=== PATIENT | female | born 1975 | race Caucasian/White ===

== ENCOUNTER 2024-12-26 08:46 | Outpatient (CLI) | payer OTHER, SELFPAY ==
--- NOTE | ~2024-12-26 | MR_ITS ---
EXAMINATION: MR knee LT wo con DATE: 12/26/2024 09:31 INDICATION: Left knee pain TECHNIQUE: Magnetic resonance imaging (MRI) of the left knee was performed without intravenous contrast. Sequences included coronal PD-weighted FSE, coronal PD-weighted FS FSE, sagittal T2-weighted FSE, sagittal PD-weighted FS FSE and axial PD weighted fat saturated FSE. COMPARISON: None. FINDINGS: Medial compartment: There is mild medial extrusion of the medial meniscal body. There is mild intrasubstance increased signal at the junction of the body and posterior horn of the medial meniscus which does not obviously contact the articular surface to suggest meniscal tear but which would be consistent with mucoid degeneration. Deep chondral ulceration with mild subarticular edema-like signal change along the anterior weightbearing medial femoral condyle and anterior third of the medial tibial plateau. In addition there is mild cortical irregularity with tiny central subchondral osteophytes at the junction of the anterior to central weightbearing medial femoral condyle. Small marginal osteophytes are present. Lateral compartment: Lateral meniscus is normal. Articular cartilage is normal. Small marginal osteophytes are present. Patellofemoral compartment: Chondral fissure involving greater than 50% the cartilage thickness but without degenerative subchondral changes at the central aspect of the medial patellar facet. Mild partial-thickness chondral ulceration at the central aspect of the medial trochlea. Ligaments and tendons: Anterior and posterior cruciate ligaments are normal. The medial collateral ligament and fibular collateral ligament complex are normal. The extensor mechanism is normal. The visualized medial and lateral hamstring tendons as well as the iliotibial band are normal. Fluid: Moderate to large left knee joint effusion. There are a few small loose osteochondral bodies in the posterior recess of the medial and lateral compartments as well as in the recess along the anterior rim of the medial tibial plateau. Osseous/other: Bone alignment is normal. No fracture or pathologic marrow replacing process. IMPRESSION: 1. 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 Minimal osteoarthritis the lateral compartme nt with normal-appearing cartilage but small marginal osteophytes. 2. Medial extrusion of the medial meniscus with mucous degeneration without discrete tear at the junction of the body and posterior horn. 3. Moderate to large left knee joint effusion. Scattered loose osteochondral bodies. Reviewed, dictated and finalized at location A. IMPRESSION: 1. Tricompartmental osteoarthritis, severe in the medial compartment with high- grade chondral malacia in both sides the joint space and mild in the patellofem oral compartment with moderate grade chondral malacia the medial trochlea and m edial tibial plateau. Minimal osteoarthritis the lateral compartment with sun l-appearing cartilage but small marginal osteophytes. 2. Medial extrusion of the medial meniscus with mucous degeneration without dis crete tear at the junction of the body and posterior horn. 3. Moderate to large left knee joint effusion. Scattered loose osteochondral andrew dies.
--- OUTSIDE RECORDS SUMMARY | 2024-12-26 09:30 | XMS_ITS | Encounter Summary ---
Author Organization [facility] Address 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
--- OUTSIDE RECORDS SUMMARY | 2024-12-26 09:30 | XMS_ITS | Encounter Summary ---
Author Organization [facility] Address 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 [address] [place] [address] PCP - General Internal Medicine 04/14/17 documented as of this encounter
--- OUTSIDE RECORDS SUMMARY | 2024-12-26 09:30 | XMS_ITS | Encounter Summary ---
Author Organization [facility] Address 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
--- OUTSIDE RECORDS SUMMARY | 2024-12-26 09:30 | XMS_ITS | Encounter Summary ---
Author Organization [facility] Address [address] [place] [address] Care Team Providers Care Absorption Operator Name Role Phone Elizabeth Fair MD Primary Care Pr ovider Encounter Details Date Type Department Care Team (Late st Contact Info) Description 02/25/2004 Outpatient Historical [facility] Maternal and Ground Floor [address] [place] [address] [place] [phone] Edson Anton MD [address] [place] [address] [address] Social History Tobacco Use Types Packs/Day Years Used Date Smoking Tobacco: Never Assessed Comments Unknown Sex and Gender Information Value Date Recorded Sex Assigned at Not on file 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
--- OUTSIDE RECORDS SUMMARY | 2024-12-26 09:30 | XMS_ITS | Encounter Summary ---
Author Organization [facility] Address 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
--- OUTSIDE RECORDS SUMMARY | 2024-12-26 09:30 | XMS_ITS | Encounter Summary ---
Author Organization [facility] Address 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 Gender Identity Not on file Sexual Orientation Not on file documented as of this encounter Plan of Treatment Not on file documented as of this encounter Procedures Procedure Name Priority Date/Time Associated Diagnosis Comments US BREAST Routine 08/21/2007 9:44 AM CDT MAMMO DIAGNOSTIC BILATERAL W OR WO CAD Routine 08/21/2007 9:44 AM CDT documented in this encounter Results * US BREAST (08/21/2007 9:44 AM CDT) Anatomical Region Laterality Modality Other 08/21/2007 9:44 AM CDT Narrative 08/22/2007 7:11 AM CDT [address] [address] Admit Date: 08/21/2007 FANNY PRINCE Sex: F Admit Prov: ELIER JAUREGUI Date: 1975 Primary Care Prov: HUNG BROWN CMRN: [id number] Room: NIKHIL SSN: [id number] IMAGING SERVICES Ordering Prov: ELIER JAUREGUI Accession Number: [id number] Interpretation Bilateral full field digital diagnostic mammograms with computer aided diagnosis and right breast ultrasound. 08/21/2007 History: Patient has right breast tenderness and lumpiness. Technique: Bilateral full field digital diagnostic mammograms are performed and CAD was utilized. No prior studies are available for comparison as this is the patient's baseline study. Breast composition: Heterogeneously dense, which lowers the sensitivity of mammography. Findings: No dominant masses, areas of asymmetry or suspicious clustered microcalcifications are identified within either breast. The CAD system detects no other significant abnormalities. Right breast ultrasound was performed. In the periareolar region, a 6 mm cyst is identified. No solid masses are seen. Overall assessment: BIRADS category 2 - Benign findings Recommendation: Clinical follow up is recommended for the patient's breast lumpiness. A simple cyst is identified in the periareolar region. No solid masses are identified on ultrasound. Patient should return for annual mammography at age 41. Dictated by: SIMON HERNANDES Electronically signed by: SIMON HERNANDES 08/22/2007 07:10 Transcribed: 08/21/2007 12:33 AMK Procedure Note Simon Hernandes - 08/22/[address] [address] Admit Date: 08/21/2007 FANNY PRINCE Sex: F Admit Prov: ELIER JAUREGUI Date: 1975 Primary Care Prov: HUNG BROWN CMRN: [id number] Room: NIKHIL SSN: [id number] IMAGING SERVICES Ordering Prov: ELIER JAUREGUI Interpretation Bilateral full field digital diagnostic mammograms with computeraided diagnosis and right breast ultrasound. 08/21/2007 History: Patient has right breast tenderness and lumpiness. Technique: Bilateral full field digital diagnostic mammograms areperformed and CAD was utilized. No prior studies are available for comparisonas this is the patient's baseline study. Breast composition: Heterogeneously dense, which lowers thesensitivity of mammography. Findings: No dominant masses, areas of asymmetry or suspiciousclustered microcalcifications are identified within either breast. The CADsystem detects no other significant abnormalities. Right breast ultrasound was performed. In the periareolar region, a 6mm cyst is identified. No solid masses are seen. Overall assessment: BIRADS category 2 - Benign findings Recommendation: Clinical follow up is recommended for the patient'sbreast lumpiness. A simple cyst is identified in the periareolar region. Nosolid masses are identified on ultrasound. Patient should return forannual mammography at age 41. Dictated by: SIMON HERNANDES Electronically signed by: SIMON HERNANDES 08/22/2007 07:10 Transcribed: 08/21/2007 12:33 AMK us Elier Garcia (Excluded Provider) Jay NUNN SERAFIN TATE Final Result * MAMMO DIGITAL DIAG BILAT (08/21/2007 9:44 AM CDT) Anatomical Region Laterality Modality Breast Bilateral Other 08/21/2007 9:4 4 AM CDT Narrative 08/22/2007 7:11 AM CDT [address] [address] Admit Date: 08/21/2007 FANNY PRINCE Sex: F Admit Prov: ELIER JAUREGUI Date: 1975 Primary Care Prov: HUNG BROWN CMRN: [id number] Room: NIKHIL SSN: [id number] IMAGING SERVICES Ordering Prov: ELIER JAUREGUI Accession Number: [id number] Interpretation Bilateral full field digital diagnostic mammograms with computer aided diagnosis and right breast ultrasound. 08/21/2007 History: Patient has right breast tenderness and lumpiness. Technique: Bilateral full field digital diagnostic mammograms are performed and CAD was utilized. No prior studies are available for comparison as this is the patient's baseline study. Breast composition: Heterogeneously dense, which lowers the sensitivity of mammography. Findings: No dominant masses, areas of asymmetry or suspicious clustered microcalcifications are identified within either breast. The CAD system detects no other significant abnormalities. Right breast ultrasound was performed. In the periareolar region, a 6 mm cyst is identified. No solid masses are seen. Overall assessment: BIRADS category 2 - Benign findings Recommendation: Clinical follow up is recommended for the patient's breast lumpiness. A simple cyst is identified in the periareolar region. No solid masses are identified on ultrasound. Patient should return for annual mammography at age 41._ Assessment BIRADS: 2-Benign finding Recommendation: Normal interval follow-up Dictated by: SIMON HERNANDES Electronically signed by: SIMON HERNANDES 08/22/2007 07:10 Transcribed: 08/21/2007 12:33 AMK Procedure Note Simon Hernandes - 08/22/[address] [address] Admit Date: 08/21/2007 FANNY PRINCE Sex: F Admit Prov: DONNACLAUDIA ELIER Garcia Date: 1975 Primary Care Prov: STEPHANIE HUNG Daniel CMRN: [id number] Room: NIKHIL SSN: [id number] IMAGING SERVICES Ordering Prov: DONNACLAUDIA ELIER Jose Interpretation Bilateral full field digital diagnostic mammograms with computeraided diagnosis and right breast ultrasound. 08/21/2007 History: Patient has right breast tenderness and lumpiness. Technique: Bilateral full field digital diagnostic mammograms areperformed and CAD was utilized. No prior studies are available for comparisonas this is the patient's baseline study. Breast composition: Heterogeneously dense, which lowers thesensitivity of mammography. Findings: No dominant masses, areas of asymmetry or suspiciousclustered microcalcifications are identified within either breast. The CADsystem detects no other significant abnormalities. Right breast ultrasound was performed. In the periareolar region, a 6mm cyst is identified. No solid masses are seen. Overall assessment: BIRADS category 2 - Benign findings Recommendation: Clinical follow up is recommended for the patient'sbreast lumpiness. A simple cyst is identified in the periareolar region. Nosolid masses are identified on ultrasound. Patient should return forannual mammography at age 41._ Assessment BIRADS: 2-Benign finding Recommendation: Normal interval follow-up Dictated by: SIMON HERNANDES Electronically signed by: SIMON HERNANDES 08/22/2007 07:10 Transcribed: 08/21/2007 12:33 AMK us Elier Garcia (Excluded Provider) Jay NUNN MAMMO O RDERABLES Final Result documented in this encounter Visit Diagnoses Diagnosis Mastodynia documented in this encounter Care Teams Date Pitter Relationship Specialty [place] [address] [facility] [address] [place] [address] PCP - General Internal Medicine 04/14/17 documented as of this encounter
--- OUTSIDE RECORDS SUMMARY | 2024-12-26 09:31 | XMS_ITS | Clinical Summary ---
Author Organization [facility] Address [address] [place] [address] Phone Care Team Providers Care Calender Feeder Name Role Phone Elizabeth Fair MD Primary Care Pr ovider Allergies No known active allergies Medications No known medications Active Problems Problem Noted Date Diagnosed Date History of stroke without residual deficits 03/31 Overweight (BMI 25.0-29.9) 04/14/2017 Gastroesophageal reflux disease without esophagi tis 04/14/2017 H/O meningioma of the brain 01/11/2013 PROM, di-di twins, breech, c /s @1600, h/o cardiomyopathy, EF 60% 11/13/2012 di/di twins, dec CL 1.1-->0. 8-->1.3, crinone, rpt CL tuesday, s/p 72 hrs indocin (09/02) s/p BMZ 09/01, h/o myocarditis/cardiomyopathy - nl echo, mfm, dopple 08/30/2012 Resolved Problems Problem Noted Date Diagnosed Date Resolved Date Calculus of gallbladder with acute cholecystitis without obstruction 04/20/20172017 Stroke 07/06/2010 04/14/2017 Encounters Date Type Department Care Team Description 12/18/2024 External Device Data STL ABSTRACTION Provider, Abstract 11/13/2024 External Device Data [facility] ABSTRACTION Provider, Abstract 10/15/2024 9:15 AM CDT - 10/15/2024 11:59 PM CDT Hospital Encounter [facility] [address] [facility] [address] [place] [address] Yareli Marina MD Discharge Disposition: Home or Self Care 10/02/2024 External Device Data STL ABSTRACTION Provider, Abstract 09/26/2024 Transcribe Orders [facility] Non Integrated Provider [address] [place] [address] Yareli Marina MD Visit for screening mammogram (Primary Dx) from Last 3 Months Immunizations Immunization Administration Dates Next Due (ADACEL/BOOSTRIX)(10 YR UP) TDAP VACCINE, 0.5ML, IM 11/17/2012 Family History Medical History Relation Name Comments Heart Disease Father Hypertension Father Breast Cancer Maternal Aunt Other Mother killed in MVA Breast Cancer Paternal Aunt 60's Relation Name Status Comments Brother Alive Father Maternal Aunt Maternal Grandfather Maternal Grandmother Alive Mother Paternal Aunt Paternal Grandfather Paternal Grandmother Alive Sister 1 Alive Sister 2 Alive Sister 3 Alive Social History Tobacco Use Types Packs/Day Years Used Date Smoking Tobacco: Former Cigarettes 0.1 7 0 05/18/1995 - 05/17/2002 Smokeless Tobacco: Never Tobacco Cessation:Counseling Given: Yes Alcohol Use Standard Drinks/Week Comments Yes 0 (1 standard drink = 0.6 oz pur e alcohol) rare Comments No Sex and Gender Information Value Date Recorded Sex Assigned at Not on file 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 Gender Identity Not on file Sexual Orientation Not on file 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 Not on file Not on file Last Filed Vital Signs Vital Sign Reading Time Taken Comments Blood Pressure 143/83 05/02/2017 11:59 AM ACCOUNT MAINTENANCE REPRESENTATIVE Pulse 86 05/02/2017 11:59 AM ACCOUNT MAINTENANCE REPRESENTATIVE Temperature 36.8 C (98.2 F) 04/23/2017 3:43 PM ACCOUNT MAINTENANCE REPRESENTATIVE Respiratory Rate 16 04/23/2017 3:43 PM ACCOUNT MAINTENANCE REPRESENTATIVE Oxygen Saturation 99% 04/23/2017 3:43 PM ACCOUNT MAINTENANCE REPRESENTATIVE Inhaled Oxygen Concentration - - Weight 73 kg (161 lb) 05/02/2017 11:59 AM ACCOUNT MAINTENANCE REPRESENTATIVE Height 165.1 cm (5' 5) 05/02/2017 11:59 AM ACCOUNT MAINTENANCE REPRESENTATIVE Body Mass Index 26.79 05/02/2017 11:59 AM ACCOUNT MAINTENANCE REPRESENTATIVE Plan of Treatment Health Maintenance Due Date Last Done Comments HEPATITIS B VACCINES (1 of 3 - 19+ 3-dose series) 11/06/1995 HPV/Cotest (21-29) 1997 HPV/Cotest (30-65) 2006 CERVICAL CANCER SCREENING 08/31/2019 PAP SMEAR 08/31/2019 08/30/2016 COLORECTAL SCREENING 2021 Colorectal Cancer Screening 2021 FIT-DNA Q 3 years 2021 FIT/FOBT Q 1 year 2021 Flex Sig/CT Colonography Q 5 years 2021 DTAP/TDAP/TD VACCINES (2 - T d or Tdap) 11/17/2022 11/17/2012 Preventative Visit- Commercial 02/29/2024 04/14/2017 INFLUENZA VACCINE (#1) 2024 BREAST CANCER SCREENING 10/15/2025 10/16/19 25, 07/23/2023, 02/23/2021, Additional history exists Medical Devices Implanted Type Area [employer] Solutions Architect Device Identifier Shelf Expiration Date Model / Serial / Lot Barrier Seprafilm 5x6in 4301-02 - [id number] Implanted:Qty : 1 on 11/13/2012 by (Excluded Provider) [place] Thompson MD at [facility] Adhesion Barrier N/A: Abdomen GENZYME- BIOSURG 07/13/2014 4301-02 / [id number] Procedures Procedure Name Priority Date/Time Associated Diagnosis Comments MAMMO 3D SAMINA SCREEN BILAT W OR WO CAD Routine 10/15/2024 9:53 AM CDT Visit for screening mammogram from Last 3 Months Results * MAMMO 3D SAMINA SCREEN BILAT W OR WO CAD (10/15/2024 9:53 AM CDT) Anatomical Region Laterality Modality Breast Bilateral Mammography 10/15/2024 9:53 AM CDT Impressions 10/15/2024 10:01 AM CDT IMPRESSION: 1. No concerning findings. OVERALL FINAL ASSESSMENT: BI-RADS CATEGORY 1: Negative. RECOMMENDATIONS: 1. Recommend annual mammography. DICTATION LOCATION: [facility] Narrative 10/15/2024 10:01 AM CDT BILATERAL SCREENING DIGITAL MAMMOGRAM WITH 3D TOMOSYNTHESIS AND CAD DATE: 10/15/2024 9:53 AM HISTORY: Routine yearly screening exam. TECHNIQUE: Low-dose full-field digital breast tomosynthesis examination was performed of both breasts with 2D and 3D acquisitions. CAD was utilized. COMPARISON: Studies dating back to January 2021 BREAST COMPOSITION: There are scattered areas of fibroglandular density. FINDINGS: Right Breast: No concerning dominant masses, suspicious calcifications, parenchymal asymmetries or areas of architectural distortion are identified in the breast. Left Breast: No concerning dominant masses, suspicious calcifications, parenchymal asymmetries or areas of architectural distortion are identified in the breast. us Yareli Marina MD MAMMO ORDERABLES Final Result from Last 3 Months Insurance [employer] [id number] Advance Directives For more information, please contact: [phone] * Full Code (Latest Code Status on File) Date Activated Date Inactivated Comments 04/23/2017 12:30 PM 04/23/2017 6:15 PM * Full Code Date Activated Date Inactivated Comments 04/23/2017 9:35 AM 04/23/2017 12:30 PM * Full Code Date Activated Date Inactivated Comments 11/13/2012 2:08 PM 11/17/2012 5:24 PM * Full Code Date Activated Date Inactivated Comments 08/30/2012 6:00 PM 09/15/2012 5:22 PM * Full Code Date Activated Date Inactivated Comments 05/08/2012 12:28 PM 05/08/2012 3:18 PM Care Teams Calender Feeder Relationship Specialty [place] [address] [address] [facility] [address] [place] [address] PCP - General Internal Medicine 04/14/17
--- OUTSIDE RECORDS SUMMARY | 2024-12-26 09:31 | XMS_ITS | Encounter Summary ---
Author Organization [facility] Address 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
--- OUTSIDE RECORDS SUMMARY | 2024-12-26 09:31 | XMS_ITS | Encounter Summary ---
Author Organization [facility] Address 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
--- OUTSIDE RECORDS SUMMARY | 2024-12-26 09:31 | XMS_ITS | Encounter Summary ---
Author Organization [facility] Address [address] [place] [address] Care Team Providers Care Warp Knit Operator Name Role Phone Elizabeth Fiar MD Primary Care Pr ovider Encounter Details Date Type Department Care Team (Late st Contact Info) Description 02/18/[address] 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
--- OUTSIDE RECORDS SUMMARY | 2024-12-26 09:31 | XMS_ITS | Encounter Summary ---
Author Organization [facility] Address [address] [place] [address] Care Team Providers Care Engineer System Administrator Name Role Phone Elizabeth Fair MD Primary Care Pr ovider Encounter Details Date Type Department Care Team (Late st Contact Info) Description 01/14/2004 Outpatient Historical [facility] Maternal and Ground Floor [address] [place] [phone] Edson Anton MD [address] [place] [address] [place] [address] Social History Tobacco Use Types Packs/Day Years Used Date Smoking Tobacco: Never Assessed Comments Unknown Sex and Gender Information Value Date Recorded Sex Assigned at Not on file Legal Sex Female 4:31 AM SPEEDER WORKER Gender Identity Not on file Sexual Orientation Not on file documented as of this encounter Plan of Treatment Not on file documented as of this encounter Visit Diagnoses Not on filedocumented in this encounter Care Teams Engineer System Administrator Relationship Specialty [place] [address] [facility] [address] [facility] [place] [address] PCP - General Internal Medicine 04/14/17 documented as of this encounter
--- OUTSIDE RECORDS SUMMARY | 2024-12-26 09:31 | XMS_ITS | Encounter Summary ---
Author Organization [facility] Address [address] [place] [address] Care Team Providers Care Learning Consultant Name Role Phone Elizabeth Fair MD Primary Care Pr ovider Encounter Details Date Type Department Care Team (Latest Contact Info) Description 09/08/2000 Outpatient Historical HIS PATIENT IN A BED Ivis Herring MD NO ADDRESS ON FILE Other specified complication, antepartum(646.83) (Primary Dx) Social History Tobacco Use Types Packs/Day Years Used Date Smoking Tobacco: Never Assessed Comments Unknown Sex and Gender Information Value Date Recorded Sex Assigned at Not on file Legal Sex Female 4:31 AM IRB COMPLIANCE COORDINATOR Gender Identity Not on file Sexual Orientation Not on file documented as of this encounter Plan of Treatment Not on file documented as of this encounter Visit Diagnoses Diagnosis Other specified complication, antepartum(646.83)- Primary Other specified complication, antepartum documented in this encounter Care Teams Learning Consultant Relationship Specialty [place] [address] [facility] [address] [place] [address] PCP - General Internal Medicine 04/14/17 documented as of this encounter
--- OUTSIDE RECORDS SUMMARY | 2024-12-26 09:31 | XMS_ITS | Encounter Summary ---
Author Organization [facility] Address [address] [place] [address] Care Team Providers Care Cottage Master Name Role Phone Elizabeth Fair MD Primary Care Pr ovider Encounter Details Date Type Department Care Team (Latest Contact Info) Description 06/10/2000 Outpatient Historical HIS PATIENT IN A [facility] [address] [place] [address] Unspecified hemorrhage in early , antepartum (Primary Dx) Social History Tobacco Use Types Packs/Day Years Used Date Smoking Tobacco: Never Assessed Comments Unknown Sex and Gender Information Value Date Recorded Sex Assigned at Not on file Legal Sex Female 4:31 AM DIRECTOR OF WORKFORCE DEVELOPMENT Gender Identity Not on file Sexual Orientation Not on file documented as of this encounter Plan of Treatment Not on file documented as of this encounter Visit Diagnoses Diagnosis Unspecified hemorrhage in early , antepartum- Primary documented in this encounter Care Teams Cottage Master Relationship Specialty [place] [address] [facility] [address] [place] [address] PCP - General Internal Medicine 04/14/17 documented as of this encounter
--- OUTSIDE RECORDS SUMMARY | 2024-12-26 09:31 | XMS_ITS | Encounter Summary ---
Author Organization [facility] Address [address] [place] [address] Care Team Providers Care Marine Engine Driver Name Role Phone Elizabeth Fair MD Primary Care Pr ovider Encounter Details Date Type Department Care Team (Late st Contact Info) Description 12/31/2003 Outpatient Historical [facility] Maternal and Ground Floor [address] [place] [address] [address] [place] [phone] Edson Anton MD [address] [place] [address] [place] [address] Social History Tobacco Use Types Packs/Day Years Used Date Smoking Tobacco: Never Assessed Comments Unknown Sex and Gender Information Value Date Recorded Sex Assigned at Not on file Legal Sex Female 4:31 AM STRATEGIC PLANNING DIRECTOR Gender Identity Not on file Sexual Orientation Not on file documented as of this encounter Plan of Treatment Not on file documented as of this encounter Visit Diagnoses Not on filedocumented in this encounter Care Teams Marine Engine Driver Relationship Specialty [place] [address] [address] [facility] [address] [facility] [place] [address] PCP - General Internal Medicine 04/14/17 documented as of this encounter
--- OUTSIDE RECORDS SUMMARY | 2024-12-26 09:31 | XMS_ITS | Encounter Summary ---
Author Organization [facility] Address [address] [place] [address] Care Team Providers Care Physical Science Aide Name Role Phone Elizabeth Fair MD Primary Care Pr ovider Encounter Details Date Type Department Care Team (Latest Contact Info) Description 10/19/2000 Outpatient Historical HIS PATIENT IN A BED Ivis Herring MD NO ADDRESS ON FILE Threatened premature labor, antepartum(644.03) (Primary Dx) Social History Tobacco Use Types Packs/Day Years Used Date Smoking Tobacco: Never Assessed Comments Unknown Sex and Gender Information Value Date Recorded Sex Assigned at Not on file Legal Sex Female 4:31 AM RESOLUTION MANAGER Gender Identity Not on file Sexual Orientation Not on file documented as of this encounter Plan of Treatment Not on file documented as of this encounter Visit Diagnoses Diagnosis Threatened premature labor, antepartum(644.03)- Primary Threatened premature labor, antepartum documented in this encounter Care Teams Physical Science Aide Relationship Specialty [place] [address] [place] [address] PCP - General Internal Medicine 04/14/17 documented as of this encounter
--- OUTSIDE RECORDS SUMMARY | 2024-12-26 09:31 | XMS_ITS | Clinical Summary ---
Author Organization [facility] Address [address] [place] [address] Care Team Providers Care Jd Edwards Name Role Phone Enrique Humphries MD Primary Care Provider [phone] Yolanda Roblero RN Unavailable Unavailable Ann-Marie Montana RN Unavailable Unavaila Irvin Degroot Unavailable Unavailable Allergies No known active allergies Medications multivitamin capsule Take 1 capsule by mouth daily Active ibuprofen-diphe nhydramine HCl 200-25 mg capsule Take by mouth Taking as needed Active Active Problems Problem Noted Date Diagnosed Date Dizzy spells 10/09/2019 Chronic cough 07/18/2018 Fatigue 11/22/2012 Myocarditis 12/03/2008 Resolved Problems Problem Noted Date Diagnosed Date Resolved Date Obesity with body mass index 30 or greater 08/12/2015 08/05/2017 Palpitations 08/12/2015 08/05/2017 Increased body mass index (BMI) 08/14/2013 08/05/2017 Chronic combined systolic an d diastolic heart failure 11/17/2010 08/05/2017 Cardiomyopathy 12/03/2008 08/05/2017 Medical History Medical History Date Comments Personal history of other di seases of the female genital tract History of - (Adde d by TW Conv) Family History Medical History Relation Name Comments Hypertension Father Family history of hypertension - (Added by TW Conv) Cancer Other Family history of cancer - Relation: Aunt (Added by TW Conv) Diabetes Sister Family history of diabetes mellitus - (Added by TW Conv) Relation Name Status Comments Father Other Sister Social History Tobacco Use Types Packs/Day Years Used Date Smoking Tobacco: Former Smokeless Tobacco: Never Tobacco Cessation:Counseling Given: Not Answered Comments Unknown Sex and Gender Information Value Date Recorded Sex Assigned at Not on file Legal Sex Female 8:00 AM STATION REPAIRER Gender Identity Not on file Sexual Orientation Not on file Obstetrics History Last Filed Vital Signs Vital Sign Reading Time Taken Comments Blood Pressure 144/84 07/10/2024 10:28 AM CDT Pulse 60 07/10/2024 10:28 AM CDT Temperature 36.8 C (98.2 F) 10/09/2019 10:44 AM CDT Respiratory Rate - - Oxygen Saturation 99% 07/10/2024 10: 28 AM CDT Inhaled Oxygen Concentration - - Weight 67.5 kg (148 lb 12.8 oz) 025 10:28 AM CDT Height 165.1 cm (5' 5) 07/10/2024 10:2 8 AM CDT Body Mass Index 24.76 07/10/2024 10:28 AM CDT Plan of Treatment Health Maintenance Due Date Last Done Comments Cervical Cancer Screening 1976 Colon Cancer Screening-Colonoscopy 1976 Depression Screening 1976 Hepatitis C Screening 1976 Hepatitis B Screening 1994 Regular Well Visit/Exam 18-64 1994 DTaP/Tdap/Td Vaccine (2 - Td or Tdap) 11/17/2022 11/17/2012 Breast Cancer Screening-Mammogram 07/22/2024 07/23/2023, 07/23/2023, 02/23/2021, Additional history exists Influenza Vaccine (#1) 2024 01/03/2013 Pneumococcal vaccine <65 Aged Out No longer eligible based on patient's age to complete this topic Procedures Procedure Name Priority Date/Time Associated Diagnosis Comments SCREENING MAMMOGRAM 2D BILATERAL Schedule Routine, Read Routine (OP Routine) 09/29/2017 7:49 AM CDT Encounter for screening mammogram for malignant neoplasm of breast from Last 3 Months or Most Recently Relevant to Health Maintenance Results * Screening Mammogram 2D Bilateral (09/29/2017 7:49 AM CDT) Anatomical Region Laterality Modality Breast Bilateral Mammography Narrative 10/11/2017 4:45 PM CDT Mammogram Technique: Bilateral Full-Field Digital Screening Mammogram was performed. Views obtained: bilateral craniocaudal and bilateral mediolateral oblique. Computer Aided Detection was performed. Mammogram Findings: The present examination has been compared to a prior imaging study performed at [place] on 02/18/2012. There are scattered areas of fibroglandular density. There is a focal asymmetry in the upper outer quadrant of the right breast. There is no suspicious abnormality in the left breast. Impression: Focal asymmetry in the right breast requires additional evaluation. Additional views are recommended. OVERALL FINAL ASSESSMENT: BI-RADS CATEGORY 0: Incomplete: Need additional imaging evaluation. Procedure Note Lelia Yeh MD - 10/11/2017 Mammogram Technique: Bilateral Full-Field Digital Screening Mammogram was performed. Views obtained: bilateral craniocaudal and bilateral mediolateral oblique. Computer Aided Detection was performed. Mammogram Findings: The present examination has been compared to a prior imaging study performed at [place] on 02/18/2012. There are scattered areas of fibroglandular density. There is a focal asymmetry in the upper outer quadrant of the rightbreast. There is no suspicious abnormality in the left breast. Impression: Focal asymmetry in the right breast requires additional evaluation. Additional views are recommended. OVERALL FINAL ASSESSMENT: BI-RADS CATEGORY 0: Incomplete: Need additional imaging evaluation. Yareli Marina MD IMG MAMMO PROCEDURES Gita l Result from Last 3 Months or Most Recently Relevant to Health Maintenance Insurance [facility] CHOICE PLUS [address] CHOICE PLUS CHOICE PLUS Care Teams Jd Edwards Relationship Specialty Start Date End Date Enrique Humphries MD [facility] [place] [address] PCP - General 07/09/16 Yolanda Roblero, crown assembly machine operator Failure Coordinator 07/05/23 Ann-Marie Montana, crown assembly machine operator Failure Coordinator 07/05/23 Irvin Prescott Primary Risk Specialist 11/15/24
--- OUTSIDE RECORDS SUMMARY | 2024-12-26 09:31 | XMS_ITS | Encounter Summary ---
Author Organization [facility] Address [address] [place] [address] Care Team Providers Care Yield Engineer Name Role Phone Elizabeth Fair MD Primary Care Pr ovider Encounter Details Date Type Department Care Team (Late st Contact Info) Description 01/24/2004 Outpatient Historical [facility] Maternal and Ground Floor [address] [facility] [address] [place] [address] Kelin Rosas MD [address] [place] [address] Social History Tobacco Use Types Packs/Day Years Used Date Smoking Tobacco: Never Assessed Comments Unknown Sex and Gender Information Value Date Recorded Sex Assigned at Not on file Legal Sex Female 4:31 AM PORT ENGINEER Gender Identity Not on file Sexual Orientation Not on file documented as of this encounter Plan of Treatment Not on file documented as of this encounter Visit Diagnoses Not on filedocumented in this encounter Care Teams Yield Engineer Relationship Specialty [place] [address] [facility] [address] [place] [address] PCP - General Internal Medicine 04/14/17 documented as of this encounter
--- OUTSIDE RECORDS SUMMARY | 2024-12-26 09:31 | XMS_ITS | Clinical Summary ---
Author Organization [facility] Address [address] [place] [address] Care Team Providers Care Vpk Teacher Name Role Phone Enrique Humphries MD Primary Care Provider [phone] Source Comments [facility],non-owned Affiliates and Associated Physician Practices is amultiple site organization consisting of ambulatory clinics and hospital sitesin [place], [place], [place] and [place]. This disclosure is being madepursuant to the Care Everywhere program and may not contain all information available regarding this patient. Last updated 17.[facility] Allergies No known active allergies Medications * This document contains information received from the source organization and may not represent a complete record from that organization. * Be aware that medications may not be up to date on this document. Alwaysverify current medications with the patient. phentermine (Adipex-P) 37.5 MG capsule Take 1 (one) capsule by mouth daily before breakfast Active Active Problems Problem Noted Date Diagnosed Date Dizzy spells 10/09/2019 Chronic cough 07/18/2018 Fatigue 11/22/2012 Myocarditis 12/03/2008 Chest pain 09/28/2007 Congestive heart failure 09/28/2007 Immunizations Immunization Administration Dates Next Due TDAP (7yrs+) 11/17/2012 Social History Tobacco Use Types Packs/Day Years Used Date Smoking Tobacco: Former Smokeless Tobacco: Never Tobacco Cessation:Counseling Given: No Alcohol Use Standard Drinks/Week Comments No 0 (1 standard drink = 0.6 oz pur e alcohol) PHQ-2 Answer Date Recorded PHQ2 TOTAL SCORE 0 12/29/2021 Comments No Sex and Gender Information Value Date Recorded Sex Assigned at Not on file Legal Sex Female 6:46 AM TASSEL SNIPPER Gender Identity Not on file Sexual Orientation Not on file Last Filed Vital Signs Vital Sign Reading Time Taken Comments Blood Pressure 139/79 03/20/2024 9:47 AM TASSEL SNIPPER Pulse 70 03/20/2024 9:47 AM TASSEL SNIPPER Temperature 36.7 C (98.1 F) 03/20/2024 9:47 AM TASSEL SNIPPER Respiratory Rate 17 01/27/2018 5:02 PM TASSEL SNIPPER Oxygen Saturation 98% 03/20/2024 9:47 AM TASSEL SNIPPER Inhaled Oxygen Concentration - - Weight 70.9 kg (156 lb 3.2 oz) 03/20/2024 9:47 A M TASSEL SNIPPER Height 165.1 cm (5' 5) 03/20/2024 9:47 AM TASSEL SNIPPER Body Mass Index 25.99 03/20/2024 9:47 AM TASSEL SNIPPER Plan of Treatment Health Maintenance Due Date Last Done Comments COLOGUARD (AGES 45-75) - COLON CA SCREENING 1976 COLON MONITORING 1976 COLONOSCOPY - COLON CA SCREENING 1976 CT COLONOGRAPHY - COLON CA SCREENING 1976 Colorectal Cancer Screening 1976 FIT - COLON CA SCREENING 1976 FLEX SIG - COLON CA SCREENING 1976 LIPID TESTING 1976 HIV SCREENING 11/06/1991 HEPATITIS C SCREENING 11/01/1994 HEPATITIS B VACCINE (1 of 3 - 19+ 3-dose series) 11/06/1995 PAP SMEAR 1997 DTAP/TDAP/TD VACCINES (2 - Td or Tdap) 11/17/2022 11/17/2012 DEPRESSION SCREENING 02/29/2024 12/29/2021 SCREENING FOR DIABETES 03/20/2024 COVID-19 VACCINE (3 - 2024- season) 2024 07/19/2020, 06/28/2020 INFLUENZA VACCINE (#1) 2024 01/03/2013 MAMMOGRAM 07/22/2025 07/23/2023, 05/06/2023, 02/23/2021, Additional history exists ZOSTER VACCINE (1 of 2) 2026 HIB VACCINE Aged Out No longer eligi ble based on patient's age to complete this topic HPV VACCINE Aged Out No longer eligi ble based on patient's age to complete this topic MENINGOCOCCAL (Group B) VACCINE SHARED DECISION-MAKING Aged Out No longer eligible based on patient's age to complete this topic MENINGOCOCCAL GROUPS A/C/Y/W VACCINE Aged Out No longer eligible based on patient's age to complete this topic PNEUMOCOCCAL VACCINE Aged Out No long er eligible based on patient's age to complete this topic Insurance [facility] Care Teams Vpk Teacher Relationship Specialty Start Date End Date Enrique Humphries MD [address] [place] [address] [facility] - General 12/29/17
--- OUTSIDE RECORDS SUMMARY | 2024-12-26 09:31 | XMS_ITS | Encounter Summary ---
Author Organization [facility] Address [address] [place] [address] Care Team Providers Care Scooping Machine Tender Name Role Phone Elizabeth Fair MD Primary Care Pr ovider Encounter Details Date Type Department Care Team (Latest Contact Info) Description 12/24/2003 Outpatient Historical [facility] (Excluded Provider) Clinton Thompson MD NO ADDRESS ON FILE OLIGOHYDRAMNIOS-ANTE PAR (Primary Dx) Social History Tobacco Use Types Packs/Day Years Used Date Smoking Tobacco: Never Assessed Comments Unknown Sex and Gender Information Value Date Recorded Sex Assigned at Not on file Legal Sex Female 4:31 AM RUBY RAILS DEVELOPER Gender Identity Not on file Sexual Orientation Not on file documented as of this encounter Plan of Treatment Not on file documented as of this encounter Visit Diagnoses Diagnosis Oligohydramnios, antepartum- Primary documented in this encounter Care Teams Scooping Machine Tender Relationship Specialty [place] [address] [facility] [address] [place] [address] PCP - General Internal Medicine 04/14/17 documented as of this encounter
--- OUTSIDE RECORDS SUMMARY | 2024-12-26 09:31 | XMS_ITS | Encounter Summary ---
Author Organization [facility] Address [address] [place] [address] Care Team Providers Care Coffee Grinder Name Role Phone Elizabeth Fair MD Primary Care Pr ovider Encounter Details Date Type Department Care Team (Late st Contact Info) Description 02/07/2004 Outpatient Historical [facility] Maternal and Ground [facility] [address] [place] [address] Manan Lemons MD NO ADDRESS ON FILE Social History Tobacco Use Types Packs/Day Years Used Date Smoking Tobacco: Never Assessed Comments Unknown Sex and Gender Information Value Date Recorded Sex Assigned at Not on file Legal Sex Female 4:31 AM DEPUTY ADMINISTRATOR Gender Identity Not on file Sexual Orientation Not on file documented as of this encounter Plan of Treatment Not on file documented as of this encounter Visit Diagnoses Not on filedocumented in this encounter Care Teams Coffee Grinder Relationship Specialty [place] [address] [facility] [address] [facility] [place] [address] PCP - General Internal Medicine 04/14/17 documented as of this encounter
--- OUTSIDE RECORDS SUMMARY | 2024-12-26 09:31 | XMS_ITS | Encounter Summary ---
Author Organization [facility] Address [address] [place] [address] Care Team Providers Care Specialty Sales Representative Name Role Phone Elizabeth Fair MD Primary Care Pr ovider Encounter Details Date Type Department Care Team (Late st Contact Info) Description 01/28/2004 Outpatient Historical [facility] Maternal and Ground Floor [address] [facility] [address] [place] [address] Kelin Rosas MD [address] [place] [address] Social History Tobacco Use Types Packs/Day Years Used Date Smoking Tobacco: Never Assessed Comments Unknown Sex and Gender Information Value Date Recorded Sex Assigned at Not on file Legal Sex Female 4:31 AM HULL GRINDER Gender Identity Not on file Sexual Orientation Not on file documented as of this encounter Plan of Treatment Not on file documented as of this encounter Visit Diagnoses Not on filedocumented in this encounter Care Teams Specialty Sales Representative Relationship Specialty [place] [address] [facility] [address] [place] [address] PCP - General Internal Medicine 04/14/17 documented as of this encounter
--- OUTSIDE RECORDS SUMMARY | 2024-12-26 09:31 | XMS_ITS | Encounter Summary ---
Author Organization [facility] Address [address] [place] [address] Care Team Providers Care Newspaper Delivery Driver Name Role Phone Elizabeth Fair MD Primary Care Pr ovider Encounter Details Date Type Department Care Team (Late st Contact Info) Description 01/07/2004 Outpatient Historical [facility] Maternal and Ground Floor [address] [place] [address] [place] [address] Edson Anton MD [address] [place] [address] [place] [address] Social History Tobacco Use Types Packs/Day Years Used Date Smoking Tobacco: Never Assessed Comments Unknown Sex and Gender Information Value Date Recorded Sex Assigned at Not on file Legal Sex Female 4:31 AM SHALLOT PACKER Gender Identity Not on file Sexual Orientation Not on file documented as of this encounter Plan of Treatment Not on file documented as of this encounter Visit Diagnoses Not on filedocumented in this encounter Care Teams Newspaper Delivery Driver Relationship Specialty [place] [address] [facility] [address] [facility] [place] [address] PCP - General Internal Medicine 04/14/17 documented as of this encounter
--- OUTSIDE RECORDS SUMMARY | 2024-12-26 09:31 | XMS_ITS | Encounter Summary ---
Author Organization [facility] Address [address] [place] [address] Care Team Providers Care Welder Oxyhydrogen Name Role Phone Elizabeth Fair MD Primary Care Pr ovider Encounter Details Date Type Department Care Team (Late st Contact Info) Description 12/24/2003 Outpatient Historical [facility] Maternal and Ground Floor [address] [place] [phone] Edson Anton MD [address] [place] [id number] [place] [address] Social History Tobacco Use Types Packs/Day Years Used Date Smoking Tobacco: Never Assessed Comments Unknown Sex and Gender Information Value Date Recorded Sex Assigned at Not on file Legal Sex Female 4:31 AM PARA MACHINE OPERATOR Gender Identity Not on file Sexual Orientation Not on file documented as of this encounter Plan of Treatment Not on file documented as of this encounter Visit Diagnoses Not on filedocumented in this encounter Care Teams Welder Oxyhydrogen Relationship Specialty [place] [address] [facility] [address] [place] [address] PCP - General Internal Medicine 04/14/17 documented as of this encounter
--- OUTSIDE RECORDS SUMMARY | 2024-12-26 09:31 | XMS_ITS | Encounter Summary ---
Author Organization [facility] Address [address] [place] [address] Care Team Providers Care Modern Languages Professor Name Role Phone Elizabeth Fair MD Primary Care Pr ovider Encounter Details Date Type Department Care Team (Latest Contact Info) Description 01/03/2003 Outpatient Historical HIS [facility] EMMETT Ochoa, Cheo Sandhu MD NO ADDRESS ON FILE ABDOMINAL PAIN UNSPEC SITE (Primary Dx) Social History Tobacco Use Types Packs/Day Years Used Date Smoking Tobacco: Never Assessed Comments Unknown Sex and Gender Information Value Date Recorded Sex Assigned at Not on file Legal Sex Female 4:31 AM STRUCTURAL DESIGNER Gender Identity Not on file Sexual Orientation Not on file documented as of this encounter Plan of Treatment Not on file documented as of this encounter Visit Diagnoses Diagnosis Abdominal pain, unspecified site- Primary documented in this encounter Care Teams Modern Languages Professor Relationship Specialty [place] [address] [facility] [address] [place] [address] PCP - General Internal Medicine 04/14/17 documented as of this encounter
--- OUTSIDE RECORDS SUMMARY | 2024-12-26 09:31 | XMS_ITS | Encounter Summary ---
Author Organization [facility] Address 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
--- OUTSIDE RECORDS SUMMARY | 2024-12-26 09:31 | XMS_ITS | Encounter Summary ---
Author Organization [facility] Address [address] [place] [address] Care Team Providers Care Bottle Tester Name Role Phone Elizabeth Fair MD Primary Care Pr ovider Encounter Details Date Type Department Care Team (Late st Contact Info) Description 02/11/2004 Outpatient Historical [facility] Maternal and Ground Floor [address] [place] [phone] Edson Anton MD [address] [place] [address] [place] [address] Social History Tobacco Use Types Packs/Day Years Used Date Smoking Tobacco: Never Assessed Comments Unknown Sex and Gender Information Value Date Recorded Sex Assigned at Not on file Legal Sex Female 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
--- OUTSIDE RECORDS SUMMARY | 2024-12-26 09:31 | XMS_ITS | Encounter Summary ---
Author Organization [facility] Address [address] [place] [address] Care Team Providers Care Vp Compliance Name Role Phone Elizabeth Fair MD Primary Care Pr ovider Encounter Details Date Type Department Care Team (Late st Contact Info) Description 02/04/2004 Outpatient Historical [facility] Maternal and Ground Floor [address] [place] [phone] Edson Anton MD [address] [place] [address] [place] [address] Social History Tobacco Use Types Packs/Day Years Used Date Smoking Tobacco: Never Assessed Comments Unknown Sex and Gender Information Value Date Recorded Sex Assigned at Not on file Legal Sex Female 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
--- OUTSIDE RECORDS SUMMARY | 2024-12-26 09:31 | XMS_ITS | Encounter Summary ---
Author Organization [facility] Address 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
--- OUTSIDE RECORDS SUMMARY | 2024-12-26 09:31 | XMS_ITS | Encounter Summary ---
Author Organization [facility] Address [address] [place] [address] Care Team Providers Care Vehicle Body Builder Name Role Phone Elizabeth Fair MD Primary Care Pr ovider Encounter Details Date Type Department Care Team (Late st Contact Info) Description 01/31/2004 Outpatient Historical [facility] Maternal and Ground Floor [address] [place] [phone] Edson Anton MD [address] [place] [address] [place] [address] Social History Tobacco Use Types Packs/Day Years Used Date Smoking Tobacco: Never Assessed Comments Unknown Sex and Gender Information Value Date Recorded Sex Assigned at Not on file 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
--- OUTSIDE RECORDS SUMMARY | 2024-12-26 09:31 | XMS_ITS | Encounter Summary ---
Author Organization [facility] Address 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
--- OUTSIDE RECORDS SUMMARY | 2024-12-26 09:31 | XMS_ITS | Encounter Summary ---
Author Organization [facility] Address [address] [place] [address] Care Team Providers Care Fulfillment Associate Name Role Phone Elizabeth Fair MD Primary Care Pr ovider Encounter Details Date Type Department Care Team (Late st Contact Info) Description 02/20/2004 Outpatient Historical [facility] Maternal and Ground Floor [facility] [address] [place] [address] Kelin Rosas MD [address] [place] [address] Social History Tobacco Use Types Packs/Day Years Used Date Smoking Tobacco: Never Assessed Comments Unknown Sex and Gender Information Value Date Recorded Sex Assigned at Not on file Legal Sex Female 

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
--- OUTSIDE RECORDS SUMMARY | 2024-12-26 09:31 | XMS_ITS | Encounter Summary ---
Author Organization [facility] Address [address] [place] [address] Care Team Providers Care Case Assembler Name Role Phone Elizabeth Fair MD Primary Care Pr ovider Encounter Details Date Type Department Care Team (Latest Contact Info) Description 12/01/2000 Inpatient Historical [facility] PATIENT IN A BED Ivis Herring MD NO ADDRESS ON FILE Second-degree perineal laceration, with delivery (Primary Dx) Social History Tobacco Use Types Packs/Day Years Used Date Smoking Tobacco: Never Assessed Comments Unknown Sex and Gender Information Value Date Recorded Sex Assigned at Not on file Legal Sex Female 4:31 AM VP DESIGN Gender Identity Not on file Sexual Orientation Not on file documented as of this encounter Plan of Treatment Not on file documented as of this encounter Visit Diagnoses Diagnosis Second-degree perineal laceration, with delivery- Primary documented in this encounter Care Teams Case Assembler Relationship Specialty [place] [address] [facility] [address] [place] [address] PCP - General Internal Medicine 04/14/17 documented as of this encounter
--- OUTSIDE RECORDS SUMMARY | 2024-12-26 09:31 | XMS_ITS | Encounter Summary ---
Author Organization [facility] Address [address] [place] [address] Care Team Providers Care Superintendent Warehouse Name Role Phone Elizabeth Fair MD Primary Care Pr ovider Encounter Details Date Type Department Care Team (Late st Contact Info) Description 01/21/2004 Outpatient Historical [facility] Maternal and Ground Floor [address] [address] [place] [phone] Edson Anton MD [address] [place] [address] [place] [address] Social History Tobacco Use Types Packs/Day Years Used Date Smoking Tobacco: Never Assessed Comments Unknown Sex and Gender Information Value Date Recorded Sex Assigned at Not on file Legal 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
== END 2024-12-26 08:47 | disposition home or self-care (01) ==
PROVIDERS: PCP Family Medicine; Visit Provider Orthopaedic Surgery
DX: M17.12 Unilateral primary osteoarthritis, left knee (principal); M25.462 Effusion, left knee
CPT/HCPCS: 73721